=== PATIENT | male | born 1980 | race Caucasian/White ===

== ENCOUNTER → 2016-12-17 | Day surgery (SDC) | payer OTHER ==
[~2016-12-17] MED LIST: ACETAMINOPHEN 1000 MG/100 ML VIAL IV ONE; ACETAMINOPHEN/HYDROcodone 325 MG/5 MG TAB ONE; BUPIVACAINE/EPINEPHRINE 0.5% PF 30 ML VIAL ONE; KETOROLAC TROMETHAMINE 30 MG/ML (IVP) VIAL IV PUSH ONE; LACTATED RINGER'S 1000 ML INJ 1,000 ML ONE; MEPERIDINE HCL 25 MG/ML VIAL ONE; MIDAZOLAM HCL 2 MG/2 ML VIAL ONE; ONDANSETRON HCL 4 MG/2 ML VIAL IV PUSH ONE; PROPOFOL 200 MG/20 ML AMP IV ONE; SODIUM CHLORIDE 0.9% 250 ML ADDBAG IV ONE; VANCOMYCIN HCL 1000 MG VIAL ONE; ceFAZolin INJ 1,000 MG VIAL ONE
--- NOTE | 2016-12-17 21:52 | MP ---
cc: JUANCARLOS LOCKETT,YESSY Alfaro MD DATE OF SURGERY 12/17/16 PROCEDURE 1. Laparoscopic right inguinal hernia repair with mesh. 2. Excision lipoma of the spermatic cord. PREOPERATIVE DIAGNOSIS Symptomatic reducible right inguinal hernia. POSTOPERATIVE DIAGNOSIS Symptomatic reducible right inguinal hernia. ANESTHESIA Gen LMA. SURGEON Lis Coats MD RELAY MAN JED Dominguez ESTIMATED BLOOD LOSS Less than 20 joules FLUIDS 1000 mL crystalloid COMPLICATIONS None. DRAINS None. 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 PROCEDURE IN DETAIL The SIGNALS ANALYST was present throughout the entire procedure from beginning to end. Her presence was required for retraction, visualization and resection of structures as well as assisting in the repair. The patient was marked in the holding area and the site was confirmed by the patient. He was then taken to the operating room and placed on the operating table in the supine position. After an adequate level of laryngeal mask anesthesia was instituted, the abdomen was shaved, prepped and draped. Time-out was taken confirming the correct patient, site and procedure to be performed. Skin and subcutaneous tissue was infiltrated with local anesthetic and an incision made in the umbilicus and carried through the fascia sharply. The peritoneal cavity was directly visualized. A balloon trocar was inserted and the balloon inflated. The abdomen was insufflated and the patient placed in Trendelenburg position. A 12-mm trocar was placed in the right lower quadrant and a 5 mm trocar in the left lower quadrant. Both entered the abdominal cavity under direct vision uneventfully. The peritoneum was incised and peeled downward. A window was created behind the spermatic cord structures after totally mobilizing the peritoneum off of the spermatic cord structures. Levy's ligament was dissected free from the surrounding loose areolar tissue and the fatty tissue was then cleaned from the anterior abdominal wall. The patient had primarily an indirect inguinal hernia, but there was also a direct component associated with it and the patient was best felt to be served by division of the epigastric vessels to create a better repair. These were divided with the harmonic scalpel and allowed for the mesh to lie much more flat on the anterior abdominal wall in a more anatomic position. When this had been completed, a 6 x 6 inch piece of Ultra pro mesh was trimmed almost in half and the corners were trimmed to create an oval shaped piece of mesh. The mesh was slit longitudinally and then placed into the pelvis. The inferior leaf of mesh was brought under the spermatic cord structures and the mesh was then transfixed to Levy's ligament with 4.0 mm salina. Prior to placement of the mesh, lipoma of the spermatic cord was peeled off as it was sitting within the hernia itself and would potentially compromise the repair. This was easily taken off of the spermatic cord structures with minimal cautery and passed off the table. The mesh was then fixed into place with 4.8 mm salina on the anterior abdominal wall and then laterally the slit was closed with two 4.8 mm salina. With hemostasis assured, insufflation was decreased to 11 mm and the peritoneum was closed with 4.8 mm salina. Insufflation was then completely discontinued and the left and right lower quadrant trocars were removed under direct vision. No bleeding was noted from the trocar sites. The fascia was closed in the right lower quadrant with a 0 Vicryl suture in a simple interrupted fashion. The fascia was closed in the umbilicus with both simple interrupted and [id number] Vicryl. The remaining local anesthetic was injected into the umbilical and right lower quadrant trocar sites as well as the right groin. The skin was closed at all three trocar sites with 4-0 Vicryl in an interrupted buried fashion. The sites were dressed with Steri-Strips. The patient was extubated and taken back to the recovery room in stable condition. He tolerated the procedure well. MD BARBIE Yoon/ /11:46 AM /9:36 PM JONO
== END | disposition home or self-care (01) ==
LOC: ESDC 08:28
PROVIDERS: ATTEND Surgery Trauma Surgery
DX: K40.90 Unilateral inguinal hernia, without obstruction or gangrene, not specified as recurrent (principal); D17.6 Benign lipomatous neoplasm of spermatic cord
CPT/HCPCS: 00840; 49650; 88304; C1781; J0131; J0690; J1885; J2175; J2250; J2405; J3010; J3370; J7120